=== PATIENT | male | born 1940 | race Caucasian/White ===

== ENCOUNTER → 2016-07-08 | Outpatient (CLI) | payer OTHER ==
[~2016-07-08] MED LIST: IOPAMIDOL (ISOVUE-M 300) 15 ML VIAL IV ONE; LIDOCAINE 1% 30 ML SDV ONE; NA BICARBONATE 50 MEQ/50 ML VIAL ONE
--- NOTE | 2016-07-08 11:14 | CT ---
CT Cervical Spine post myelogram 1012 hours History: Transient upper extremity numbness. Evaluate for cervical spinal disease. Technique: Spiral imaging was obtained from the base of skull to the upper chest following myelogram procedure. Images were reconstructed at 1.25 mm slice thickness. Images were reconstructed in multipl e planes. Dose reduction techniques were utilized. Findings: Vertebral body heights are well maintained. There are no subluxations. No fractures are see n. Paravertebral soft tissues demonstrate no significant abnormality. C2-C3: No disk bulge protrusion. Moderate to severe left-sided facet hypertrophy with endplate sclero sis and subchondral cystic change. C3-C4: Mild disk space narrowing without disk bulge or protrusion. Bilateral facet hypertrophy and mo derate on the left and mild on the right. This along with small posterolateral osteophytes contribute s to [id number] bilateral neural foraminal stenosis more prominent on the right. C4-C5: Moderate to marked disk space narrowing with endplate sclerosis and mild hypertrophic osteophy isabell. No significant disk bulge or protrusion, however. There is mild bilateral facet hypertrophy. C5-C6: Moderate degenerative disk disease with loss of disk height. No significant disk bulge or prot rusion. There is bilateral facet hypertrophy moderate on the right and mild on the left. C6-C7: Yvsp-zi-vfachiyi degenerative disk disease with disk space narrowing and mild osteophyte osorio es. There is mild posterior central to left paracentral disk bulge with only mild compression upon th e dural sac. No significant spinal stenosis. There is mild bilateral neural foraminal stenosis second krishan to posterior lateral osteophytes along with mild to moderate bilateral facet hypertrophy. C7-T1: No disk bulge or protrusion is seen. There is bilateral facet hypertrophy moderate left and mo derate on the right. IMPRESSION: 1. Mild disk bulge at C7-T1 without significant consequences. 2. Bilateral facet hypertrophy throughout the cervical spine as detailed above.
--- NOTE | 2016-07-08 11:39 | CT ---
CT of the Lumbar Spine post myelogram 1005 hours Clinical Indications: Low back pain. Possible spinal stenosis. Radiculopathy thoracolumbar region. (M 48.02) Technique: Spiral imaging was obtained through the lumbar spine from T12 through S1 following myelog rita procedure. Images were reconstructed thin slice axial and reconstructed in sagittal and coronal p lanes. Dose reduction techniques were utilized. Findings: There is some contrast pooling in the epidural space posterior to the L4-S1 segments. A sma ll amount of epidural contrast is also seen anteriorly from L2 to L3. The remaining contrast is in th e spinal sac. Lumbar vertebral bodies are of normal height without compression fractures. There are no lytic or sclerotic osseous lesions. There is no significant scoliosis of the lumbar spine. There are no subluxations appreciated. T12-L1: Mild to moderate disk space narrowing with small marginal osteophytes. Minimal disk bulge wit hout consequences. L1-L2: Mild to moderate disk space narrowing more prominent on the left side with slightly more prom inent left-sided osteophytes laterally. There is mild diffuse disk bulge with associated marginal ost eophytes causing mild compression upon the anterior dural sac. This along with mild bilateral facet h ypertrophy contributes to auzu-wr-onboxfzz spinal stenosis. There is mild left-sided neuroforaminal s tenosis secondary to disk and osteophyte. L2-L3: Mild disk space narrowing is present. There is moderate diffuse disk bulge. This along with m oderate facet hypertrophy and ligamentum flavum hypertrophy contributes to severe spinal stenosis. Th ere is [id number] bilateral neural foraminal stenosis secondary to disk bulge and facet hypertr ophy. L3-L4: Mild to moderate disk space narrowing is present slightly more prominent toward the right aleah e. There is mild to moderate diffuse disk bulge with prominence right paracentral to posterolateral. This along with mild to moderate facet hypertrophy and ligamentum flavum hypertrophy contributes to m oderate to severe spinal stenosis and right-sided lateral recess stenosis. There is moderate bilatera l neuroforaminal stenosis secondary to disk bulge and facet hypertrophy. L4-L5: There is bony fusion across the disk space. No residual disk bulge is identified. Facets are normal. L5-S1: Marked disk space narrowing with vacuum phenomenon. Endplate sclerosis and hypertrophic osteo phytes are present. There is mild associated disk bulge causing mild compression upon the dural sac w ithout significant spinal stenosis. There is moderate bilateral neural foraminal stenosis secondary t o mild disk bulge with posterolateral osteophytes and mild facet hypertrophy. Impression: 1. Spinal stenosis most prominent at L2-L3 and L3-L4 secondary to disk bulge along with facet hypertr ophy and ligamentum flavum hypertrophy as detailed above. 2. Bilateral neural foraminal stenoses identified secondary to facet hypertrophy along with disk bulg e and posterior lateral osteophytes most prominent at L3-L4 and at L5-S1. 3. Partial epidural injection of contrast that pools from L4 through S1 posteriorly.
--- NOTE | 2016-07-08 14:31 | DX ---
Lumbar and Cervical Myelogram History: Possible cervical and lumbar spinal stenosis with radiculopathy (M 47.812, M 48.02, M 54.15) Crosscutting Measure #226 : Current tobacco user no. Witnessed Consent: Witnessed informed consent was obtained after the risks, benefits, and alternativ es of lumbar and cervical myelogram were explained to the patient and all questions were answered. Fluoroscopy time: 3.1 minutes, Estimated dose: 58.20 mGy Technique: With the patient in prone oblique position, the patient's back was prepped with betadine and alcohol solution. Lidocaine with bicarbonate was used as local anesthesia. Then, with fluoroscopic guidance, a 22-gauge spinal needle was advanced into the L3-L4 interlaminar space. Clear cerebrospinal fluid wa s identified. Then, 12 mL of [id number] were placed under fluoroscopy into the thecal sac. Needle w as removed. Manual hemostasis was achieved. Patient tolerated the procedure well without immediate co mplications. Digital images were obtained in multiple projections. Patient disposition: Discharge instructions were given. No immediate complications. Myelogram Findings: During injection, contrast at first appeared to be localized at the L4 level, how ever, this apparently then flowed into the spinal sac. However, on subsequent imaging there was a foc al residual collection of contrast posterior to the L5 and S1 segment that presumably is in the epidu ral space as well as contrast identified in the spinal sac. On imaging obtained of the lumbar spine there is mild to moderate disk bulges suspected at L2-L3 and L3-L4 levels. There is bony bridging across the L4-L5 disk space. There is compression upon the right side of the dural sac at the L3-L4 level presumably secondary to disk bulge and ligamentum flavum hy pertrophy with associated moderate spinal stenosis. Attempt was made to follow contrast up the thoracic and into the cervical spine, however, the contras t is relatively faint. Imaging was not obtained of the cervical spine at this time. The patient subse quently underwent CT imaging. Impression: 1. Injection of contrast that appeared to be partially in the spinal sac as well as posterior epidura l space. Enough contrast is visualized in the spinal sac for subsequent CT imaging. 2. Disk bulges suspected at L2-L3 and L3-L4 along with asymmetric compression upon the right side of the dural sac at L3-L4 level.
== END ==
LOC: FIMAGING 06:53
PROVIDERS: ATTEND Neurological Surgery
PROC: 3E0R3KZ Introduction of Other Diagnostic Substance into Spinal Canal, Percutaneous Approach (ICD-10-PCS; principal; 2016-07-08)
DX: M48.06 Spinal stenosis, lumbar region (principal); M51.86 Other intervertebral disc disorders, lumbar region; M50.83 Other cervical disc disorders, cervicothoracic region; M46.92 Unspecified inflammatory spondylopathy, cervical region; Z88.0 Allergy status to penicillin
CPT/HCPCS: 62284; 62302; 72126; 72132; 72270; Q9967

== ENCOUNTER → 2018-08-01 | Outpatient (CLI) | payer OTHER ==
--- NOTE | 2018-08-01 13:29 | CPEEG ---
[f rep st] ELECTROENCEPHALOGRAM DATE OF STUDY: 08/01/2018 INTERPRETATION: Normal EEG during wakefulness and sleep. There were no potentially epileptogenic ab normalities present during the recording. If clinically indicated, a 4-hour video EEG could be considered to capture prolonged sustained sleep. REPORT: This EEG contains 10 Hz alpha activity in the posterior head regions. There was no abnormal activation at rest, during photic stimulation or hyperventilation. The patient became drowsy and fe ll into sleep briefly during the study. There was no abnormal activation during drowsiness, sleep, o r during times of arousal. /[id number]/MODL
== END ==
LOC: FCPNEURO 11:25
PROVIDERS: ATTEND Student in an Organized Health Care Education/Training Program
DX: R94.01 Abnormal electroencephalogram [EEG] (principal)